=== PATIENT | female | born 1970 | race Caucasian/White ===

== ENCOUNTER 2022-02-13 18:09 | Emergency (ER) | payer OTHER ==
[~2022-02-13] VITALS: Ht 165.1 cm; Wt 65.9 kg
[2022-02-13 18:16] VITALS: TEMP 97.9
[2022-02-13 21:00] VITALS: BP 144/80; PULSE 80
== END 2022-02-13 21:00 | disposition home or self-care (01) ==
LOC: COL.ER 18:09
DX: G44.309 Post-traumatic headache, unspecified, not intractable (principal); Z28.310 Unvaccinated for COVID-19